=== PATIENT | female | born 1950 | race Caucasian/White ===

== ENCOUNTER 2018-11-07 22:42 | Emergency (ER) | payer OTHER ==
[2018-11-07 22:48] VITALS: BP 147/55; PULSE 81; TEMP 98.3; BMI 28.3
--- NOTE | 2018-11-07 22:57 | PDOC ---
*Physical Exam - Vital Signs Last Vital Signs Temp Pulse Resp BP Pulse Ox 98.3 F 81 18 147/55 L 100 11/07/18 22:45 11/07/18 22:45 11/07/18 22:45 11/07/18 22:45 11/07/18 22:45 *DC/Admit/Observation/Transfer - Referrals Referrals: Jerry Fuentes MD [Primary Care Provider] - - Patient Instructions - Post Discharge Activity
--- NOTE | 2018-11-07 23:35 | PDOC ---
History of Present Illness - General Chief Complaint: Sore Throat Stated Complaint: SORE THROAT Time Seen by Provider: 11/07/18 22:55 History Source: Patient Past History - Past Medical History Allergies/Adverse Reactions: Allergies Allergy/AdvReac Type Severity Reaction Status Date / Time No Known Allergies Allergy Verified 07/03/12 20:27 Home Medications: Ambulatory Orders Amitriptyline HCl [Elavil -] 25 mg PO HS 06/30/12 Acetaminophen W/ Codeine #3 [Tylenol # 3 -] 1 tab PO Q4H PRN #15 tablet Phenazopyridine HCl 100 mg PO TID 07/01/12 Hydrocortisone/Lidocaine/Aloe [Lidocaine 3%-Hc 2.5% Gel] 1 each RC BID #0 kit Oxycodone HCl/Acetaminophen [Percocet 5-325 mg Tablet] 1 - 2 tab PO Q6H #30 tablet 07/03/12 Anemia: No Asthma: No Cancer: No Cardiac Disorders: No CVA: No COPD: No CHF: No Dementia: No Diabetes: No GI Disorders: No Disorders: Yes (dropped bladder) HTN: Yes Hypercholesterolemia: No Liver Disease: No Seizures: No Thyroid Disease: No - Surgical History Abdominal Surgery: No Appendectomy: No Cardiac Surgery: No Cholecystectomy: Yes (2008) Lung Surgery: No Neurologic Surgery: No Orthopedic Surgery: Yes (l knee arthroscopy) - Suicide/Smoking/Psychosocial Hx Smoking Status: No Smoking History: Never smoked Have you smoked in the past 12 months: No Number of Cigarettes Smoked Daily: 0 Information on smoking cessation initiated: No Hx Alcohol Use: No Drug/Substance Use Hx: No Substance Use Type: None Hx Substance Use Treatment: No *Physical Exam - Vital Signs Last Vital Signs Temp Pulse Resp BP Pulse Ox 98.3 F 81 18 147/55 L 100 11/07/18 22:45 11/07/18 22:45 11/07/18 22:45 11/07/18 22:45 11/07/18 22:45 Moderate Sedation - Procedure Monitoring Vital Signs: Procedure Monitoring Vital Signs Temperature 98.3 F 11/07/18 22:45 Pulse Rate 81 11/07/18 22:45 Respiratory Rate 18 11/07/18 22:45 Blood Pressure 147/55 L 11/07/18 22:45 O2 Sat by Pulse Oximetry (%) 100 11/07/18 22:45 *DC/Admit/Observation/Transfer - Referrals Referrals: Jerry Fuentes MD [Primary Care Provider] - - Patient Instructions - Post Discharge Activity
--- NOTE | 2018-11-08 01:20 | PDOC ---
Attending Attestation - Resident Resident Name: Keli Velasquez - ED Attending Attestation I have performed the following: I have examined & evaluated the patient, The case was reviewed & discussed with the resident, I agree w/resident's findings & plan, Exceptions are as noted - HPI HPI: 11/08/18 03:23 Ms Han is a 68 yo F PMH of HTN who presents to the ER with a complaint of sore throat, cough productive of yellow phlegm which is also blood tinged Symptoms began today. No chest pain Pt does note throat pain No fevers or chills Denies SOB, abdominal pain, n/v/d, recent travel - Physicial Exam PE: 11/08/18 03:26 GENERAL: The patient is in no acute distress. ENT: Ears normal, nares patent, oropharynx clear without exudates. Moist mucous membranes. No tonsillar enlargement, no exudates NECK: Normal range of motion, supple, no nuchal rigidity (+) LAD LUNGS: Breath sounds equal, clear to auscultation bilaterally. No wheezes, and no crackles. HEART:Regular rate and rhythm, normal S1 and S2 without murmur, rub or gallop. ABDOMEN: Soft, nontender, normoactive bowel sounds. EXTREMITIES: Normal range of motion, no edema. NEUROLOGICAL: Cranial nerves II through XII grossly intact. Normal speech. No focal neurological deficits. SKIN: Warm, Dry, normal turgor, no rashes or lesions noted. - Medical Decision Making 11/08/18 03:32 Laboratory Tests 11/08/18 11/08/18 11/08/18 01:33 01:33 01:56 WBC 9.3 Hgb 13.5 Hct 39.1 Plt Count 306 BUN 8 Creatinine 0.6 Group A Strep Rapid Negative CXR - no acute infiltrate or consolidation Will discharge to home Will give Azithromycin Follow up with PMD
[2018-11-08] MEDS ORDERED: ACETAMINOPHEN 500 MG TABLET (FP) PO ONE (01:24)
[2018-11-08] MEDS ORDERED: DEXAMETHASONE 4 MG TABLET (FP) PO STA (01:24)
--- NOTE | 2018-11-08 01:40 | PDOC ---
History of Present Illness - General Chief Complaint: Hemoptysis Stated Complaint: SORE THROAT Time Seen by Provider: 11/07/18 22:55 History Source: Patient, Family (Son) Exam Limitations: Language Barrier - History of Present Illness Initial Comments: 11/08/18 01:36 Pt is a 68yo F with PMH of HTN presenting to ED with complaints of sore throat, cough productive of yellow phlegm and hemoptysis, headache. Symptoms started today. Pt states that she has been having congestion, saw her PMD and was given Sudafed and Claritin. The sudafed has helped with the congestion but throat still hurts. Sputum is mainly yellow with scant amounts of occasional red blood , no clots. She denies fever, chills, chest pain, SOB, abdominal pain, n/v/d, sick contacts, recent travel, changes in vision, earache, syncope, dizziness. PMD: Neghassi PMH: HTN PSH: none Meds: Amlodipine Allergies: nkda Social: denies Past History - Past Medical History Allergies/Adverse Reactions: Allergies Allergy/AdvReac Type Severity Reaction Status Date / Time No Known Allergies Allergy Verified 07/03/12 20:27 Home Medications: Ambulatory Orders Amitriptyline HCl [Elavil -] 25 mg PO HS 06/30/12 Acetaminophen W/ Codeine #3 [Tylenol # 3 -] 1 tab PO Q4H PRN #15 tablet Phenazopyridine HCl 100 mg PO TID 07/01/12 Hydrocortisone/Lidocaine/Aloe [Lidocaine 3%-Hc 2.5% Gel] 1 each RC BID #0 kit Oxycodone HCl/Acetaminophen [Percocet 5-325 mg Tablet] 1 - 2 tab PO Q6H #30 tablet 07/03/12 Azithromycin [Zithromax 250mg Tablets -] 250 mg PO DAILY #4 tablet 11/08/18 Anemia: No Asthma: No Cancer: No Cardiac Disorders: No CVA: No COPD: No CHF: No Dementia: No Diabetes: No GI Disorders: No Disorders: Yes (dropped bladder) HTN: Yes Hypercholesterolemia: No Liver Disease: No Seizures: No Thyroid Disease: No - Surgical History Abdominal Surgery: No Appendectomy: No Cardiac Surgery: No Cholecystectomy: Yes (2008) Lung Surgery: No Neurologic Surgery: No Orthopedic Surgery: Yes (l knee arthroscopy) - Suicide/Smoking/Psychosocial Hx Smoking Status: No Smoking History: Never smoked Have you smoked in the past 12 months: No Number of Cigarettes Smoked Daily: 0 Information on smoking cessation initiated: No Hx Alcohol Use: No Drug/Substance Use Hx: No Substance Use Type: None Hx Substance Use Treatment: No *Physical Exam - Vital Signs Last Vital Signs Temp Pulse Resp BP Pulse Ox 98.3 F 81 18 147/55 L 100 11/07/18 22:45 11/07/18 22:45 11/07/18 22:45 11/07/18 22:45 11/07/18 22:45 Moderate Sedation - Procedure Monitoring Vital Signs: Procedure Monitoring Vital Signs Temperature 98.3 F 11/07/18 22:45 Pulse Rate 81 11/07/18 22:45 Respiratory Rate 18 11/07/18 22:45 Blood Pressure 147/55 L 11/07/18 22:45 O2 Sat by Pulse Oximetry (%) 100 11/07/18 22:45 ED Treatment Course - LABORATORY CBC & Chemistry Diagram: 11/08/18 01:33 11/08/18 01:33 - RADIOLOGY Radiology Studies Ordered: Category Date Time Status CHEST PA & LAT [RAD] Stat Radiology 11/08/18 01:24 Ordered Medical Decision Making - Medical Decision Making 11/08/18 01:40 Pt is a 68yo F with PMH of HTN presenting to ED with complaints of sore throat, cough productive of yellow phlegm and hemoptysis, headache. Symptoms started today. Pt states that she has been having congestion, saw her PMD and was given Sudafed and Claritin. The sudafed has helped with the congestion but throat still hurts. Sputum is mainly yellow with scant amounts of occasional red blood , no clots. She denies fever, chills, chest pain, SOB, abdominal pain, n/v/d, sick contacts, recent travel, changes in vision, earache, syncope, dizziness. Vitals: wnl PE: benign *DC/Admit/Observation/Transfer Diagnosis at time of Disposition: Bronchitis - Discharge Dispostion Disposition: HOME Condition at time of disposition: Improved Decision to Admit order: No - Referrals Referrals: Jerry Fuentes MD [Primary Care Provider] - - Patient Instructions Printed Discharge Instructions: DI for Acute Bronchitis Additional Instructions: You were seen in the emergency room for sore throat and cough. The blood test and xray were normal. You most likely have bronchitis. A prescription was sent to your pharmacy for an antibiotic. You received a dose here so start it tomorrow (Saturday). Take it once a day for 4 days. Please make an appointment with your doctor next week. Keep yourself well hydrated. Come back to the emergency room if coughing gets worse, you develop fever, you have difficulty breathing or if any new concerning symptom develops. Thank you - Post Discharge Activity
[2018-11-08] MEDS ORDERED: DEXAMETHASONE SOD PHOSPHATE 10 MG/1 ML VIAL ONE (01:42)
[2018-11-08] MEDS ORDERED: ACETAMINOPHEN 325 MG TABLET (FP) ONE (01:42)
[2018-11-08 01:45] LABS: BASO % 0.7 % (0-2.0); EOS % 0.5 % (0-4.5); HEMATOCRIT 39.1 % (32.4-45.2); HEMOGLOBIN 13.5 GM/dL (10.7-15.3); LYMPH % 24.9 % (8-40); MCH 31.5 pg (25.7-33.7); MCHC 34.5 g/dl (32.0-36.0); MEAN CELL VOLUME 91.3 fl (80-96); MEAN PLT VOLUME 8.2 fl (7.5-11.1); MONO % 5.3 % (3.8-10.2); NEUT % 68.6 % (42.8-82.8); PLATELET COUNT 306 K/MM3 (134-434); RBC 4.28 M/mm3 (3.60-5.2); RDW 13.7 % (11.6-15.6); WHITE BLOOD COUNT 9.3 K/mm3 (4.0-10.0)
[2018-11-08 02:21] LABS: ALBUMIN 3.5 g/dl (3.4-5.0); ALK PHOS 152 U/L (45-117); ANION GAP 6 MMOL/L (8-16); BILIRUBIN,TOTAL 0.5 mg/dL (0.2-1); BLOOD UREA NITROGEN 8 mg/dL (7-18); CALCIUM 8.7 mg/dL (8.5-10.1); CHLORIDE 107 mmol/L (98-107); CO2 26 mmol/L (21-32); CREATININE 0.6 mg/dL (0.55-1.3); GLUCOSE,RANDOM 93 mg/dL (74-106); POTASSIUM 3.9 mmol/L (3.5-5.1); SGOT/AST 23 U/L (15-37); SGPT/ALT 33 U/L (13-61); SODIUM 139 mmol/L (136-145); TOT PROT 6.9 g/dl (6.4-8.2)
[2018-11-08] MEDS ORDERED: AZITHROMYCIN 250 MG TABLET PO ONE (02:33)
[2018-11-08] MEDS ORDERED: AZITHROMYCIN 250 MG TABLET ONE (03:27)
== END 2018-11-08 03:33 | disposition home or self-care (01) ==
LOC: JER 22:42
DX: J40 Bronchitis, not specified as acute or chronic (principal); I10 Essential (primary) hypertension
CPT/HCPCS: 36415; 71046-TC-FY; 80053; 85025; 87070; 87880; 99281-25

== ENCOUNTER 2019-01-06 13:07 | Emergency (ER) | payer OTHER ==
[2019-01-06 13:13] VITALS: BP 153/65; PULSE 82; TEMP 98.3; BMI 28.3
[2019-01-06] MEDS ORDERED: KETOROLAC TROMETHAMINE 30 MG/1 ML VIAL IM ONE (13:46)
--- NOTE | 2019-01-06 13:46 | PDOC ---
History of Present Illness - General History Source: Patient - History of Present Illness Occurred: reports: other Severity: reports: moderate Pain Location: reports: back, chest <OlyJosefina - Last Filed: 01/06/19 14:26> <Mayda Louis - Last Filed: 01/07/19 07:58> - General Chief Complaint: Back Pain Stated Complaint: PAIN Time Seen by Provider: 01/06/19 13:42 Past History - Past Medical History Anemia: No Asthma: No Cancer: No Cardiac Disorders: No CVA: No COPD: No CHF: No Dementia: No Diabetes: No GI Disorders: No Disorders: Yes (dropped bladder) HTN: Yes Hypercholesterolemia: No Liver Disease: No Seizures: No Thyroid Disease: No - Surgical History Abdominal Surgery: No Appendectomy: No Cardiac Surgery: No Cholecystectomy: Yes (2008) Lung Surgery: No Neurologic Surgery: No Orthopedic Surgery: Yes (l knee arthroscopy) - Suicide/Smoking/Psychosocial Hx Smoking Status: No Smoking History: Never smoked Have you smoked in the past 12 months: No Number of Cigarettes Smoked Daily: 0 Hx Alcohol Use: No Drug/Substance Use Hx: No Substance Use Type: None Hx Substance Use Treatment: No <HinkleJosefina - Last Filed: 01/06/19 14:26> <Mayda Louis - Last Filed: 01/07/19 07:58> - Past Medical History Allergies/Adverse Reactions: Allergies Allergy/AdvReac Type Severity Reaction Status Date / Time No Known Allergies Allergy Verified 01/06/19 13:09 Home Medications: Ambulatory Orders Amitriptyline HCl [Elavil -] 25 mg PO HS 06/30/12 Acetaminophen W/ Codeine #3 [Tylenol # 3 -] 1 tab PO Q4H PRN #15 tablet Phenazopyridine HCl 100 mg PO TID 07/01/12 Hydrocortisone/Lidocaine/Aloe [Lidocaine 3%-Hc 2.5% Gel] 1 each RC BID #0 kit Oxycodone HCl/Acetaminophen [Percocet 5-325 mg Tablet] 1 - 2 tab PO Q6H #30 tablet 07/03/12 Azithromycin [Zithromax 250mg Tablets -] 250 mg PO DAILY #4 tablet 11/08/18 Acetaminophen W/ Codeine #3 [Tylenol # 3 -] 1 tab PO Q6H #15 tablet MDD 4 doses 01/06/19 Valacyclovir HCl [Valtrex -] 1,000 mg PO TID #21 tablet 01/06/19 Review of Systems - Review of Systems Constitutional: No: Chills, Fever Cardiac (ROS): Yes: Chest Pain ABD/GI: No: Nausea, Vomiting Musculoskeletal: Yes: Back Pain Neurological: No: Numbness, Tingling <Josefina Aldridge - Last Filed: 01/06/19 14:26> *Physical Exam - Vital Signs Last Vital Signs Temp Pulse Resp BP Pulse Ox 98.3 F 82 20 153/65 98 01/06/19 13:10 01/06/19 13:10 01/06/19 13:10 01/06/19 13:10 01/06/19 13:10 - Physical Exam General Appearance: Yes: Appropriately Dressed, Moderate Distress HEENT: positive: Normal Voice Respiratory/Chest: positive: Lungs Clear, Normal Breath Sounds. negative: Respiratory Distress Cardiovascular: positive: Regular Rate, S1, S2 Integumentary: positive: Dry, Warm, Rash (vesicular rash to mid back and R inframammary area, c/w shingles, does not cross midline) Neurologic: positive: Fully Oriented, Alert, Normal Mood/Affect <Josefina Aldridge - Last Filed: 01/06/19 14:26> - Vital Signs Last Vital Signs Temp Pulse Resp BP Pulse Ox 98.3 F 82 20 153/65 98 01/06/19 13:10 01/06/19 13:10 01/06/19 13:10 01/06/19 13:10 01/06/19 13:10 <Mayda oLuis - Last Filed: 01/07/19 07:58> ED Treatment Course - Medications Given in the ED: ED Medications Discontinued Medications Generic Name Dose Route Start Last Admin Trade Name Jessy PRN Reason Stop Dose Admin Acetaminophen 650 mg 01/06/19 13:51 01/06/19 14:07 Tylenol - PO 01/06/19 13:52 650 mg ONCE ONE Administration Ketorolac Tromethamine 30 mg 01/06/19 13:46 01/06/19 14:08 Toradol Injection - IM 01/06/19 13:47 Not Given ONCE ONE Tramadol HCl 50 mg 01/06/19 13:50 01/06/19 14:07 Ultram - PO 01/06/19 13:51 50 mg ONCE ONE Administration <Mayda Louis - Last Filed: 01/07/19 07:58> Medical Decision Making - Medical Decision Making 01/06/19 13:43 68 yo F, denies any past medical history, here with severe pain to mid upper back radiating to right chest 2 days. No chest, no shortness of breath, diaphoresis, nausea, vomiting, fever or chills. No trauma. See exam Shingles Vesicular rash to T6 dermatome, no complications -pain control in ED -dc w/ valtrex, pain control -contact precautions given -pmd f/u 01/06/19 14:27 <Josefina Aldridge - Last Filed: 01/06/19 14:26> - Medical Decision Making The patient was seen and evaluated in conjunction with midlevel provider under my direct supervision, ancillary studies were reviewed. I agree with the plan as outlined SHELBI Aldridge. HPI, workup/dispo as outlined. VS reviewed, wnl. 01/07/19 07:58 <Mayda Louis - Last Filed: 01/07/19 07:58> *DC/Admit/Observation/Transfer <Josefina Aldridge - Last Filed: 01/06/19 14:26> <Mayda Louis - Last Filed: 01/07/19 07:58> Diagnosis at time of Disposition: Shingles Qualifiers: Herpes zoster complications: without complications Qualified Code(s): B02.9 - Zoster without complications - Discharge Dispostion Disposition: HOME Condition at time of disposition: Good - Prescriptions Prescriptions: Acetaminophen W/ Codeine #3 [Tylenol # 3 -] 1 tab PO Q6H #15 tablet MDD 4 doses Valacyclovir HCl [Valtrex -] 1,000 mg PO TID #21 tablet - Patient Instructions Printed Discharge Instructions: Shingles Additional Instructions: Tienes culebrilla que es arnel reactivacin de la varicela desde la infancia. [place] los medicamentos rivera se le indique y vicente un seguimiento con nova PMD. [place] es contagioso para las personas que nunca mccrary tenido varicela y para las mujeres embarazadas. Retorno por empeoramiento de los sntomas. Print Language: [place]
[2019-01-06] MEDS ORDERED: traMADol HCL 50 MG TABLET PO ONE (13:50)
[2019-01-06] MEDS ORDERED: ACETAMINOPHEN 325 MG TABLET (FP) PO ONE (13:51)
[2019-01-06] MEDS ORDERED: traMADol HCL 50 MG TABLET ONE (14:04)
[2019-01-06] MEDS ORDERED: ACETAMINOPHEN 325 MG TABLET (FP) ONE (14:04)
== END 2019-01-06 14:54 | disposition home or self-care (01) ==
LOC: JER 13:07
PROC: 3E0233Z Introduction of Anti-inflammatory into Muscle, Percutaneous Approach (ICD-10-PCS; principal; 2019-01-06)
DX: B02.9 Zoster without complications (principal)
CPT/HCPCS: 96372; 99282-25

== ENCOUNTER 2019-08-28 14:12 | Emergency (ER) | payer OTHER ==
[2019-08-28 14:23] VITALS: BP 138/67; PULSE 75; TEMP 98; BMI 28.4
[2019-08-28] MEDS ORDERED: DEXAMETHASONE LIQUID 0.5 MG/5 ML PO ONE (15:30)
[2019-08-28] MEDS ORDERED: ALBUTEROL SO4 2.5/IPRATROPIUM 0.5 INH SOL 3 ML VIAL.NEB. NEB ONE ×2 (15:30→16:43)
[2019-08-28] MEDS ORDERED: ACETAMINOPHEN 325 MG TABLET (FP) PO ONE (15:30)
[2019-08-28] MEDS ORDERED: guaiFENesin/D-METHORPHAN HB 10 ML UNIT-DOSE CUPS PO ONE (15:30)
--- NOTE | 2019-08-28 15:42 | PDOC ---
History of Present Illness - General Chief Complaint: Respiratory Stated Complaint: COUGH Time Seen by Provider: 08/28/19 14:43 History Source: Patient Exam Limitations: No Limitations Past History - Travel Close contact w/someone who was outside of country & ill: No - Past Medical History Allergies/Adverse Reactions: Allergies Allergy/AdvReac Type Severity Reaction Status Date / Time No Known Allergies Allergy Verified 08/28/19 14:18 Home Medications: Ambulatory Orders Phenazopyridine HCl 100 mg PO TID 07/01/12 Amlodipine Besylate 10 mg PO DAILY 08/28/19 Amoxicillin 875 mg PO BID 08/28/19 Azithromycin [Zithromax 250mg Tablets -] 250 mg PO UTDICT #6 tab 08/28/19 Benzonatate 100 mg PO TID PRN 08/28/19 Ciclopirox 1 appful TD ASDIR 08/28/19 Prednisone 40 mg PO DAILY #12 tablet 08/28/19 Anemia: No Asthma: No Cancer: No Cardiac Disorders: No CVA: No COPD: No CHF: No Dementia: No Diabetes: No GI Disorders: No Disorders: Yes (dropped bladder) HTN: Yes Hypercholesterolemia: No Liver Disease: No Seizures: No Thyroid Disease: No - Surgical History Abdominal Surgery: No Appendectomy: No Cardiac Surgery: No Cholecystectomy: Yes (2008) Lung Surgery: No Neurologic Surgery: No Orthopedic Surgery: Yes (l knee arthroscopy) - Psycho Social/Smoking Cessation Hx Smoking Status: No Smoking History: Never smoked Have you smoked in the past 12 months: No Number of Cigarettes Smoked Daily: 0 Hx Alcohol Use: No Drug/Substance Use Hx: No Substance Use Type: None Hx Substance Use Treatment: No Review of Systems - Review of Systems Able to Perform ROS?: Yes Comments:: 08/28/19 15:42 CONSTITUTIONAL: Absent: fever, chills, diaphoresis, generalized weakness, malaise, loss of appetite HEENT: Absent: rhinorrhea, nasal congestion, throat pain, throat swelling, difficulty swallowing, mouth swelling, ear pain, eye pain, visual Changes CARDIOVASCULAR: Absent: chest pain, loss of consciousness, palpitations, irregular heart rate, peripheral edema RESPIRATORY: Present: Cough, shortness of breath, chest tightness. Absent: dyspnea with exertion, orthopnea, wheezing, stridor, hemoptysis GASTROINTESTINAL: Absent: abdominal pain, abdominal distension, nausea, vomiting, diarrhea, constipation, melena, hematochezia GENITOURINARY: Absent: dysuria, frequency, urgency, hesitancy, hematuria, flank pain, genital pain MUSCULOSKELETAL: Absent: myalgia, arthralgia, joint swelling SKIN: Absent: rash, itching, pallor HEMATOLOGIC/IMMUNOLOGIC: Absent: easy bleeding, easy bruising, lymphadenopathy, frequent infections ENDOCRINE: Absent: unexplained weight gain, unexplained weight loss, heat intolerance, cold intolerance NEUROLOGIC: Absent: headache, focal weakness or paresthesias, dizziness, unsteady gait, seizure, mental status changes, bladder or bowel incontinence PSYCHIATRIC: Absent: anxiety, depression, suicidal or homicidal ideation, hallucinations. Is the patient limited Frisian proficient: No *Physical Exam - Vital Signs Last Vital Signs Temp Pulse Resp BP Pulse Ox 98 F 75 20 138/67 96 08/28/19 14:22 08/28/19 14:22 08/28/19 14:22 08/28/19 14:22 08/28/19 14:22 - Physical Exam 08/28/19 15:43 GENERAL: Well developed, well nourished. Awake and alert. No acute distress. HEENT: Normocephalic, atraumatic. PERRLA, EOMI. No conjunctival pallor. Sclera are non- icteric. Moist mucous membranes. (+) Nasal congestion, postnasal drip noted oropharynx is clear. NECK: Supple. Full ROM. No thyromegaly. No lymphadenopathy. CARDIOVASCULAR: Regular rate and rhythm. No murmurs, rubs, or gallops. Distal pulses are 2+ and symmetric. PULMONARY: No evidence of respiratory distress. Lungs clear to auscultation bilaterally. No wheezing, rales or rhonchi. ABDOMINAL: Soft. Non-tender. Non-distended. No rebound or guarding. No organomegaly. Normoactive bowel sounds. MUSCULOSKELETAL Normal range of motion at all joints. No bony deformities or tenderness. No CVA tenderness. EXTREMITIES: No cyanosis. No clubbing. No edema. No calf tenderness. SKIN: Warm and dry. Normal capillary refill. No rashes. No jaundice. NEUROLOGICAL: Alert, awake, appropriate. Cranial nerves 2-12 intact. No deficits to light touch and temperature in face, upper extremities and lower extremities. No motor deficits in the in face, upper extremities and lower extremities. Normoreflexic in the upper and lower extremities. Normal speech. Toes are down- going bilaterally. Gait is normal without ataxia. PSYCHIATRIC: Cooperative. Good eye contact. Appropriate mood and affect. Medical Decision Making - Medical Decision Making 08/28/19 15:45 Patient is a 69-year-old female past medical history of hypertension, who presents to the ER today for 1 month of cough. She states that she feels like she has a mass in the back of her throat that drips down the back of her throat. She notes that she has been seen her primary care provider who is given her amoxicillin and benzonate for the cough. She states the medications have not been helping. She denies taking any steroids for this issue. She notes that the cough is worse when she takes a deep breath. She also admits to some associated chest tightness. Denies fevers, chills, sore throat, earache, chest pain, nausea, vomiting or diarrhea. A/P: Cough On exam lungs are clear to auscultation bilateral with no wheezes rales or rhonchi. There is noted upper airway congestion. Given chest tightness, will order EKG and chest x-ray Audra and Alisia ordered Likely a viral bronchitis at this point Signout given to KYRA Sesay. Patient pending x-ray and EKG for dispo Discharge - Discharge Information Problems reviewed: Yes Clinical Impression/Diagnosis: Cough Condition: Stable Disposition: HOME - Additional Discharge Information Prescriptions: Azithromycin [Zithromax 250mg Tablets -] 250 mg PO UTDICT #6 tab Prednisone 40 mg PO DAILY #12 tablet - Follow up/Referral Referrals: Jerry Fuentes MD [Primary Care Provider] - - Patient Discharge Instructions Patient Printed Discharge Instructions: DI for Cough -- Adult Additional Instructions: Please take medications as prescribed. Follow up with your primary care doctor on Saturday as scheduled. If you develop fever, chills, vomiting, diarrhea, or any new or worsening symptoms, please return to the ER. Print Language: [place] - Post Discharge Activity
--- NOTE | 2019-08-28 16:31 | PDOC ---
*Physical Exam - Vital Signs Last Vital Signs Temp Pulse Resp BP Pulse Ox 98 F 75 20 138/67 96 08/28/19 14:22 08/28/19 14:22 08/28/19 14:22 08/28/19 14:22 08/28/19 14:22 - Physical Exam 08/28/19 16:31 Sign-out received from outgoing ER provider Isac. Pt interviewed and examined. Ancillary studies reviewed. 08/28/19 18:49 CXR wet read negative. Patient reports feeling much better after administration of meds. Patient states she has an appt with her PCP Dr. Garcia on Saturday. Discharge - Discharge Information Problems reviewed: Yes Clinical Impression/Diagnosis: Cough Condition: Stable Disposition: HOME - Admission No - Additional Discharge Information Prescriptions: Azithromycin [Zithromax 250mg Tablets -] 250 mg PO UTDICT #6 tab Prednisone 40 mg PO DAILY #12 tablet - Follow up/Referral Referrals: Jerry Fuentes MD [Primary Care Provider] - - Patient Discharge Instructions Patient Printed Discharge Instructions: DI for Cough -- Adult Additional Instructions: Please take medications as prescribed. Follow up with your primary care doctor on Saturday as scheduled. If you develop fever, chills, vomiting, diarrhea, or any new or worsening symptoms, please return to the ER. Print Language: TURKM[place] - Post Discharge Activity
[2019-08-28] MEDS ORDERED: guaiFENesin 200 MG/10 ML 10 ML UNIT-DOSE CUPS ONE (16:43)
[2019-08-28] MEDS ORDERED: ACETAMINOPHEN 325 MG TABLET (FP) ONE (16:43)
[2019-08-28] MEDS ORDERED: DEXAMETHASONE SOD PHOSPHATE 10 MG/1 ML VIAL ONE (16:44)
--- NOTE | 2019-08-29 14:14 | EKG ---
Test Reason : Blood Pressure : / mmHG Vent. Rate : 071 BPM Atrial Rate : 071 BPM P-R Int : 146 ms QRS Dur : 092 ms QT Int : 416 ms P-R-T Axes : 041 -22 016 degrees QTc Int : 452 ms NORMAL SINUS RHYTHM POSSIBLE LEFT ATRIAL ENLARGEMENT INCOMPLETE RIGHT BUNDLE BRANCH BLOCK BORDERLINE ECG WHEN COMPARED WITH ECG OF 25-JUL-2006 16:59, INCOMPLETE RIGHT BUNDLE BRANCH BLOCK IS NOW PRESENT Confirmed by VANESSA LORENZO MD ([id number]) on 08/29/2019 2:14:02 PM Referred By: Confirmed By:VANESSA LORENZO MD
== END 2019-08-28 19:13 | disposition home or self-care (01) ==
LOC: JER 14:12
PROC: 3E0F7GC Introduction of Other Therapeutic Substance into Respiratory Tract, Via Natural or Artificial Opening (ICD-10-PCS; principal; 2019-08-28)
DX: J20.8 Acute bronchitis due to other specified organisms (principal)
CPT/HCPCS: 71046-TC-FY; 93005; 93010; 99281-25

== ENCOUNTER 2020-10-21 13:14 | Emergency (ER) | payer OTHER ==
[2020-10-21 13:40] VITALS: BP 144/69; PULSE 96; TEMP 98.4; BMI 31.2
[2020-10-21] MEDS ORDERED: KETOROLAC TROMETHAMINE 30 MG/1 ML VIAL IVPUSH ONE (15:08)
[2020-10-21] MEDS ORDERED: KETOROLAC TROMETHAMINE 30 MG/1 ML VIAL ONE (16:31)
[2020-10-21 17:27] LABS: BASO % 0.3 % (0-2.0); EOS % 0.7 % (0-4.5); HEMATOCRIT 40.4 % (32.4-45.2); HEMOGLOBIN 13.4 GM/dL (10.7-15.3); LYMPH % 24.7 % (8-40); MCH 30.2 pg (25.7-33.7); MCHC 33.1 g/dl (32.0-36.0); MEAN CELL VOLUME 91.1 fl (80-96); MEAN PLT VOLUME 8.7 fl (7.5-11.1); MONO % 4.5 % (3.8-10.2); NEUT % 69.8 % (42.8-82.8); PLATELET COUNT 328 K/MM3 (134-434); RBC 4.44 M/mm3 (3.60-5.2); RDW 13.3 % (11.6-15.6); WHITE BLOOD COUNT 9.5 K/mm3 (4.0-10.0)
[2020-10-21 17:48] LABS: CHLORIDE 103 mmol/L (98-107); POTASSIUM 3.7 mmol/L (3.5-5.1); SODIUM 135 mmol/L (136-145)
[2020-10-21 17:50] LABS: ANION GAP 6 MMOL/L (8-16); CALCIUM 9.2 mg/dL (8.5-10.1); CO2 26 mmol/L (21-32)
[2020-10-21 17:51] LABS: ALBUMIN 4.1 g/dl (3.4-5.0); BLOOD UREA NITROGEN 8.7 mg/dL (7-18); GLUCOSE,RANDOM 96 mg/dL (74-106); MAGNESIUM 2.5 mg/dL (1.8-2.4)
[2020-10-21 17:54] LABS: CREATININE 0.6 mg/dL (0.55-1.3); SGOT/AST 20 U/L (15-37); SGPT/ALT 24 U/L (13-61)
[2020-10-21 17:55] LABS: BILIRUBIN,TOTAL 0.5 mg/dL (0.2-1); TOT PROT 7.5 g/dl (6.4-8.2)
[2020-10-21 17:56] LABS: ALK PHOS 168 U/L (45-117)
== END 2020-10-21 22:38 | disposition home or self-care (01) ==
LOC: JER 13:14
PROC: 3E033GC Introduction of Other Therapeutic Substance into Peripheral Vein, Percutaneous Approach (ICD-10-PCS; principal; 2020-10-21)
DX: R07.9 Chest pain, unspecified (principal)
CPT/HCPCS: 36415; 71046-TC-FY; 80053; 82550; 82553; 83735; 83880; 84439; 84443; 84484; 85025; 93005; 93010; 99285-25

== ENCOUNTER 2021-05-26 12:12 | Emergency (ER) | payer OTHER ==
[2021-05-26 12:17] VITALS: BP 156/74; PULSE 74; TEMP 98; BMI 30.4
[2021-05-26 13:14] LABS: EPI CELLS 9 /uL (0-25.1); HYALINE CASTS 1 /uL (0-3.1); URINE APPEARANCE CLEAR; URINE BACTERIA 107 /uL (0-1359); URINE BILIRUBIN NEGATIVE (NEGATIVE); URINE COLOR YELLOW; URINE GLUCOSE (UA) NEGATIVE (NEGATIVE); URINE KETONE NEGATIVE (NEGATIVE); URINE LEUK ESTERASE TRACE (NEGATIVE); URINE NITRITE NEGATIVE (NEGATIVE); URINE PROTEIN NEGATIVE (NEGATIVE); URINE RBC 2 /uL (0-23.9); URINE UROBILINOGEN 0.2 mg/dL (0.2-1.0); URINE WBC 25 /uL (0-25.8)
== END 2021-05-26 13:35 | disposition home or self-care (01) ==
LOC: JER 12:12 → JERFT 12:12
DX: R30.0 Dysuria (principal)
CPT/HCPCS: 81003; 87086; 99283-25

== ENCOUNTER 2021-06-08 14:10 | Emergency (ER) | payer OTHER ==
[2021-06-08 14:15] VITALS: BP 141/63; PULSE 80; TEMP 98.5; BMI 28.7
[2021-06-08 15:51] LABS: EPI CELLS 12 /uL (0-25.1); HYALINE CASTS 0 /uL (0-3.1); URINE APPEARANCE CLEAR; URINE BACTERIA 11 /uL (0-1359); URINE BILIRUBIN NEGATIVE (NEGATIVE); URINE COLOR YELLOW; URINE GLUCOSE (UA) NEGATIVE (NEGATIVE); URINE KETONE NEGATIVE (NEGATIVE); URINE LEUK ESTERASE 1+ (NEGATIVE); URINE NITRITE NEGATIVE (NEGATIVE); URINE PROTEIN NEGATIVE (NEGATIVE); URINE RBC 2 /uL (0-23.9); URINE UROBILINOGEN 0.2 mg/dL (0.2-1.0); URINE WBC 64 /uL (0-25.8)
[2021-06-08] MEDS ORDERED: PHENAZOPYRIDINE HCL 100 MG TABLET (FP) PO ONE (16:35)
[2021-06-08] MEDS ORDERED: PHENAZOPYRIDINE HCL 100 MG TABLET (FP) ONE (16:48)
== END 2021-06-08 16:51 | disposition home or self-care (01) ==
LOC: JER 14:10
DX: N39.3 Stress incontinence (female) (male) (principal); R35.0 Frequency of micturition
CPT/HCPCS: 81003; 87086; 87186; 99284-25

== ENCOUNTER 2022-09-16 18:09 | Emergency (ER) | payer OTHER ==
[2022-09-16 18:14] VITALS: BMI 31.5
[2022-09-16] MEDS ORDERED: LACTATED RINGERS SOLUTION 1000 ML INFUS.BAG IV ONE (21:11)
[2022-09-16 22:37] LABS: HEMATOCRIT 38.4 % (32.4-45.2); HEMOGLOBIN 12.7 GM/dL (10.7-15.3); MCH 29.8 pg (25.7-33.7); MCHC 33.1 g/dl (32.0-36.0); MEAN PLT VOLUME 7.6 fl (7.5-11.1); PLATELET COUNT 388 10^3/uL (134-434); RBC 4.27 M/mm3 (3.60-5.2); RDW 13.2 % (11.6-15.6); WHITE BLOOD COUNT 16.8 K/mm3 (4.0-10.0)
[2022-09-16 22:43] LABS: INR 1.18 (0.83-1.09); PROTHROMBIN TIME (PATIENT) 13.6 SEC (9.7-13.0)
[2022-09-16 23:22] LABS: ALBUMIN 3.6 g/dl (3.4-5.0); BLOOD UREA NITROGEN 11.2 mg/dL (7-18); CALCIUM 8.7 mg/dL (8.5-10.1)
[2022-09-16 23:25] LABS: CREATININE 0.5 mg/dL (0.55-1.3)
[2022-09-16 23:27] LABS: TOT PROT 6.8 g/dl (6.4-8.2)
[2022-09-16 23:30] LABS: BILIRUBIN,TOTAL 0.8 mg/dL (0.2-1)
[2022-09-17 00:20] LABS: ANISOCYTOSIS 2+; MACROCYTOSIS 0; OVALOCYTE 2+; TEAR DROP CELLS 1+; TOXIC GRANULATION 2+
[2022-09-17 01:27] VITALS: BP 136/57; PULSE 78; RESP 16; TEMP 99.6
[2022-09-17] MEDS ORDERED: AMPICILLIN NA/SULBACTAM NA 1.5 GM in SODIUM CHLORIDE 100 ML IVPB ONE (02:14)
== END 2022-09-17 06:01 | disposition home or self-care (01) ==
LOC: JER 18:09
DX: K52.9 Noninfective gastroenteritis and colitis, unspecified (principal)
CPT/HCPCS: 0241U-QW; 36415; 71045-TC-FY; 74177-TC; 80053; 84484; 85025; 85610; 93005; 93010; 99285-25; Q9967

== ENCOUNTER 2022-10-06 15:42 | Emergency (ER) | payer OTHER ==
[2022-10-06 15:51] VITALS: BP 172/87; PULSE 88; RESP 18; TEMP 98.5; BMI 29.2
[2022-10-06 19:07] LABS: BASO % 0.3 % (0-2.0); EOS % 0.6 % (0-4.5); HEMOGLOBIN 13.4 GM/dL (10.7-15.3); LYMPH % 21.6 % (8-40); MCH 29.4 pg (25.7-33.7); MCHC 31.8 g/dl (32.0-36.0); MEAN CELL VOLUME 92.5 fl (80-96); MEAN PLT VOLUME 8.3 fl (7.5-11.1); MONO % 5.4 % (3.8-10.2); NEUT % 72.1 % (42.8-82.8); PLATELET COUNT 334 10^3/uL (134-434); RBC 4.55 M/mm3 (3.60-5.2); RDW 13.9 % (11.6-15.6); WHITE BLOOD COUNT 12.6 K/mm3 (4.0-10.0)
[2022-10-06 19:34] LABS: ALBUMIN 3.7 g/dl (3.4-5.0); CALCIUM 9.1 mg/dL (8.5-10.1)
[2022-10-06 19:35] LABS: BLOOD UREA NITROGEN 12.3 mg/dL (7-18)
[2022-10-06 19:37] LABS: CREATININE 0.8 mg/dL (0.55-1.3)
[2022-10-06 19:40] LABS: BILIRUBIN,TOTAL 0.6 mg/dL (0.2-1); TOT PROT 7.1 g/dl (6.4-8.2)
== END 2022-10-06 20:05 | disposition home or self-care (01) ==
LOC: JER 15:42
DX: R19.7 Diarrhea, unspecified (principal)
CPT/HCPCS: 36415; 80053; 82272; 85025; 87045; 87046; 87209; 87324; 87449; 99281-25

== ENCOUNTER 2022-11-23 12:47 | Observation (INO) | payer OTHER ==
[2022-11-23] MEDS ORDERED: LABETALOL HCL 5 MG/1 ML (100MG/20 ML VIAL) IVPUSH ONE (13:46)
[2022-11-23] MEDS ORDERED: LABETALOL HCL 20 MG/4 ML VIAL ONE (14:06)
[2022-11-23 14:32] LABS: PH,URINE 7.5 (5.0-8.0); URINE APPEARANCE CLEAR; URINE BILIRUBIN NEGATIVE (NEGATIVE); URINE COLOR YELLOW; URINE GLUCOSE (UA) NEGATIVE (NEGATIVE); URINE KETONE NEGATIVE (NEGATIVE); URINE LEUK ESTERASE NEGATIVE (NEGATIVE); URINE NITRITE NEGATIVE (NEGATIVE); URINE PROTEIN NEGATIVE (NEGATIVE); URINE UROBILINOGEN 0.2 mg/dL (0.2-1.0)
[2022-11-23 14:51] LABS: BASO % 0.2 % (0-2.0); EOS % 0.5 % (0-4.5); HEMATOCRIT 40.3 % (32.4-45.2); HEMOGLOBIN 13.6 GM/dL (10.7-15.3); LYMPH % 24.8 % (8-40); MCH 30.8 pg (25.7-33.7); MCHC 33.8 g/dl (32.0-36.0); MEAN PLT VOLUME 8.8 fl (7.5-11.1); MONO % 3.9 % (3.8-10.2); NEUT % 70.6 % (42.8-82.8); PLATELET COUNT 329 10^3/uL (134-434); RBC 4.43 M/mm3 (3.60-5.2); RDW 14.1 % (11.6-15.6); WHITE BLOOD COUNT 9.9 K/mm3 (4.0-10.0)
[2022-11-23 15:30] VITALS: RESP 18
[2022-11-23 15:37] LABS: ALBUMIN 3.6 g/dl (3.4-5.0); BILIRUBIN,TOTAL 0.6 mg/dL (0.2-1); BLOOD UREA NITROGEN 7.4 mg/dL (7-18); CALCIUM 8.8 mg/dL (8.5-10.1); CREATININE 0.6 mg/dL (0.55-1.3); N-TERMINAL BNP 121.1 pg/ml (5-125); TOT PROT 7.3 g/dl (6.4-8.2)
[2022-11-23 17:22] LABS: ALBUMIN 3.4 g/dl (3.4-5.0); BLOOD UREA NITROGEN 7.2 mg/dL (7-18); CALCIUM 8.8 mg/dL (8.5-10.1)
[2022-11-23 17:25] LABS: CREATININE 0.5 mg/dL (0.55-1.3)
[2022-11-23 17:27] LABS: BILIRUBIN,TOTAL 0.5 mg/dL (0.2-1); TOT PROT 6.4 g/dl (6.4-8.2)
[2022-11-24 00:52] VITALS: BMI 29.5
[2022-11-24 07:25] LABS: BASO % 0.2 % (0-2.0); EOS % 0.3 % (0-4.5); HEMATOCRIT 39.3 % (32.4-45.2); HEMOGLOBIN 13.4 GM/dL (10.7-15.3); LYMPH % 12.1 % (8-40); MCH 30.7 pg (25.7-33.7); MCHC 34.1 g/dl (32.0-36.0); MEAN CELL VOLUME 89.9 fl (80-96); MEAN PLT VOLUME 8.4 fl (7.5-11.1); MONO % 4.1 % (3.8-10.2); NEUT % 83.3 % (42.8-82.8); PLATELET COUNT 299 10^3/uL (134-434); RBC 4.38 M/mm3 (3.60-5.2)
[2022-11-24 07:37] LABS: CALCIUM 8.9 mg/dL (8.5-10.1)
[2022-11-24 07:38] LABS: ALBUMIN 3.6 g/dl (3.4-5.0); BLOOD UREA NITROGEN 15.8 mg/dL (7-18); MAGNESIUM 2.3 mg/dL (1.8-2.4)
[2022-11-24 07:41] LABS: CREATININE 0.5 mg/dL (0.55-1.3); PHOSPHOROUS 4.3 mg/dL (2.5-4.9)
[2022-11-24 07:42] LABS: BILIRUBIN,TOTAL 0.8 mg/dL (0.2-1)
[2022-11-24 07:43] LABS: TOT PROT 6.9 g/dl (6.4-8.2)
[2022-11-24 07:47] VITALS: TEMP 98.7
[2022-11-24] MEDS ORDERED: amLODIPine BESYLATE 5 MG TABLET (FP) PO SCH (10:00)
[2022-11-24] MEDS ORDERED: LOSARTAN POTASSIUM 25 MG TABLET PO SCH (10:00)
[2022-11-24] MEDS ORDERED: ENOXAPARIN NA (PORCINE) 40 MG/0.4 ML DISP.SYRIN SQ SCH (10:00)
[2022-11-24 10:12] VITALS: BP 155/74; PULSE 67
== END 2022-11-24 16:55 | disposition home or self-care (01) ==
LOC: JER 12:47 → JERBED 17:40 → J4W 20:11
PROVIDERS: ADMIT Internal Medicine; ATTEND Internal Medicine
PROC: 3E023GC Introduction of Other Therapeutic Substance into Muscle, Percutaneous Approach (ICD-10-PCS; principal; 2022-11-23)
PROC: 3E033GC Introduction of Other Therapeutic Substance into Peripheral Vein, Percutaneous Approach (ICD-10-PCS; 2022-11-23)
DX: I10 Essential (primary) hypertension (principal); E78.00 Pure hypercholesterolemia, unspecified; R51.9 Headache, unspecified; N39.9 Disorder of urinary system, unspecified
CPT/HCPCS: 36415; 70450-TC; 71045-TC-FY; 80053; 80061; 81003; 83735; 83880; 84100; 84443; 84484; 85025; 93005; 93010; 96372; 96374; 99285-25; C9803-CS; G0378; U0003; U0005

== ENCOUNTER 2022-12-11 11:43 | Observation (INO) | payer OTHER ==
[2022-12-11 11:57] VITALS: BMI 29.9
[2022-12-11] MEDS ORDERED: IBUPROFEN 400 MG TABLET (FP) PO ONE ×2 (12:25→13:25)
[2022-12-11] MEDS ORDERED: ONDANSETRON 4 MG TABLET PO ONE (12:25)
[2022-12-11] MEDS ORDERED: ACETAMINOPHEN 325 MG TABLET (FP) PO ONE (12:25)
[2022-12-11] MEDS ORDERED: ONDANSETRON *ODT* 4 MG TABLET ONE (13:25)
[2022-12-11] MEDS ORDERED: ACETAMINOPHEN 325 MG TABLET (FP) ONE (13:25)
[2022-12-11 15:05] LABS: BASO % 0.3 % (0-2.0); HEMATOCRIT 38.4 % (32.4-45.2); MCH 29.9 pg (25.7-33.7); MCHC 33.9 g/dl (32.0-36.0); MEAN CELL VOLUME 88.3 fl (80-96); MONO % 5.6 % (3.8-10.2); NEUT % 85.1 % (42.8-82.8); PLATELET COUNT 279 10^3/uL (134-434); RBC 4.35 M/mm3 (3.60-5.2); RDW 13.6 % (11.6-15.6); WHITE BLOOD COUNT 10.6 K/mm3 (4.0-10.0)
[2022-12-11 15:25] LABS: CALCIUM 8.7 mg/dL (8.5-10.1)
[2022-12-11 15:26] LABS: ALBUMIN 3.6 g/dl (3.4-5.0); BLOOD UREA NITROGEN 4.7 mg/dL (7-18)
[2022-12-11 15:29] LABS: CREATININE 0.5 mg/dL (0.55-1.3)
[2022-12-11 15:31] LABS: BILIRUBIN,TOTAL 0.7 mg/dL (0.2-1)
[2022-12-11] MEDS ORDERED: SODIUM CHLORIDE 0.9% 500 ML INFUS.BAG IV ONE (15:32)
[2022-12-11] MEDS ORDERED: ONDANSETRON 4 MG/2 ML VIAL IVPUSH PRN (18:23)
[2022-12-11] MEDS ORDERED: POTASSIUM CHLORIDE TABS 20 MEQ TABLET.ER (FP) PO ONE ×2 (18:25→18:51)
[2022-12-11] MEDS ORDERED: SODIUM CHLORIDE 1,000 ML IV SCH (18:30)
[2022-12-11 20:03] LABS: CALCIUM 8.2 mg/dL (8.5-10.1)
[2022-12-11 20:04] LABS: BLOOD UREA NITROGEN 4.8 mg/dL (7-18)
[2022-12-11 20:07] LABS: CREATININE 0.6 mg/dL (0.55-1.3)
[2022-12-11] MEDS: HEPARIN NA (PORCINE) 5,000 UNITS/ML 1ML VIAL SQ SCH (23:42)
[2022-12-11] MEDS: ACETAMINOPHEN 325 MG TABLET (FP) PO PRN (23:42)
[2022-12-11] MEDS: NITROFURANTOIN MACROCRYSTAL 50 MG CAPSULE (FP) PO SCH (23:44)
[2022-12-12] MEDS ORDERED: NITROFURANTOIN MACROCRYSTAL 50 MG CAPSULE (FP) PO SCH
[2022-12-12] MEDS: NITROFURANTOIN MACROCRYSTAL 50 MG CAPSULE (FP) PO SCH ×4 (05:58→23:58)
[2022-12-12 09:03] LABS: BASO % 0.3 % (0-2.0); HEMATOCRIT 37.6 % (32.4-45.2); HEMOGLOBIN 12.9 GM/dL (10.7-15.3); LYMPH % 7.2 % (8-40); MCH 30.1 pg (25.7-33.7); MCHC 34.2 g/dl (32.0-36.0); MEAN CELL VOLUME 88.3 fl (80-96); MEAN PLT VOLUME 8.1 fl (7.5-11.1); MONO % 7.9 % (3.8-10.2); NEUT % 84.6 % (42.8-82.8); PLATELET COUNT 281 10^3/uL (134-434); RBC 4.26 M/mm3 (3.60-5.2); RDW 13.5 % (11.6-15.6); WHITE BLOOD COUNT 11.3 K/mm3 (4.0-10.0)
[2022-12-12 09:19] LABS: CALCIUM 8.5 mg/dL (8.5-10.1)
[2022-12-12 09:20] LABS: BLOOD UREA NITROGEN 5.6 mg/dL (7-18)
[2022-12-12 09:23] LABS: CREATININE 0.6 mg/dL (0.55-1.3)
[2022-12-12] MEDS ORDERED: LOSARTAN POTASSIUM 50 MG TABLET PO SCH (10:00)
[2022-12-12] MEDS ORDERED: DEXTROSE 5%-WATER - 1,000 ML IV SCH ×2 (10:30→10:56)
[2022-12-12] MEDS: ACETAMINOPHEN 325 MG TABLET (FP) PO PRN ×2 (10:32→17:16)
[2022-12-12] MEDS: LOSARTAN POTASSIUM 25 MG TABLET PO SCH (10:34)
[2022-12-12] MEDS: HEPARIN NA (PORCINE) 5,000 UNITS/ML 1ML VIAL SQ SCH ×2 (10:34→21:06)
[2022-12-12 11:32] VITALS: RESP 18
[2022-12-12 16:54] LABS: BLOOD UREA NITROGEN 10.8 mg/dL (7-18)
[2022-12-12 16:57] LABS: CREATININE 0.7 mg/dL (0.55-1.3)
[2022-12-12] MEDS ORDERED: POTASSIUM CHLORIDE TABS 20 MEQ TABLET.ER (FP) PO ONE (17:32)
[2022-12-13 04:10] LABS: CALCIUM 8.4 mg/dL (8.5-10.1)
[2022-12-13 04:11] LABS: BLOOD UREA NITROGEN 7.3 mg/dL (7-18)
[2022-12-13 04:14] LABS: CREATININE 0.5 mg/dL (0.55-1.3); PHOSPHOROUS 2.3 mg/dL (2.5-4.9)
[2022-12-13 04:15] LABS: BILIRUBIN,TOTAL 0.5 mg/dL (0.2-1)
[2022-12-13 04:19] LABS: ALBUMIN 2.8 g/dl (3.4-5.0)
[2022-12-13] MEDS: NITROFURANTOIN MACROCRYSTAL 50 MG CAPSULE (FP) PO SCH ×2 (05:06→12:25)
[2022-12-13] MEDS: ACETAMINOPHEN 325 MG TABLET (FP) PO PRN (05:40)
[2022-12-13 08:50] LABS: BASO % 0.5 % (0-2.0); EOS % 0.1 % (0-4.5); HEMATOCRIT 36.8 % (32.4-45.2); HEMOGLOBIN 13.1 GM/dL (10.7-15.3); LYMPH % 12.1 % (8-40); MCH 31.2 pg (25.7-33.7); MCHC 35.5 g/dl (32.0-36.0); MEAN CELL VOLUME 87.7 fl (80-96); MEAN PLT VOLUME 8.8 fl (7.5-11.1); NEUT % 78.3 % (42.8-82.8); PLATELET COUNT 251 10^3/uL (134-434); RDW 13.2 % (11.6-15.6); WHITE BLOOD COUNT 10.3 K/mm3 (4.0-10.0)
[2022-12-13] MEDS: HEPARIN NA (PORCINE) 5,000 UNITS/ML 1ML VIAL SQ SCH (10:49)
[2022-12-13] MEDS: LOSARTAN POTASSIUM 25 MG TABLET PO SCH (10:49)
[2022-12-13 10:53] VITALS: BP 121/67; PULSE 73; TEMP 98.7
== END 2022-12-13 15:54 | disposition home or self-care (01) ==
LOC: JERFT 11:43 → INTOOBSV 15:50 → JERBED 15:50 → J7W 23:07
PROVIDERS: ADMIT Internal Medicine; ATTEND Internal Medicine
PROC: 3E033GC Introduction of Other Therapeutic Substance into Peripheral Vein, Percutaneous Approach (ICD-10-PCS; principal; 2022-12-11)
PROC: 3E023GC Introduction of Other Therapeutic Substance into Muscle, Percutaneous Approach (ICD-10-PCS; 2022-12-11)
PROC: 3E0337Z Introduction of Electrolytic and Water Balance Substance into Peripheral Vein, Percutaneous Approach (ICD-10-PCS; 2022-12-11)
DX: U07.1 COVID-19 (principal); E87.1 Hypo-osmolality and hyponatremia
CPT/HCPCS: 0241U-QW; 36415; 71046-TC-FY; 80048; 80053; 83735; 84100; 85025; 93005; 93010; 94010; 94761; 96361; 96365; 96372; 99285-25; G0378; J1644

== ENCOUNTER 2023-10-09 18:28 | Emergency (ER) | payer OTHER ==
[2023-10-09 18:42] VITALS: BP 141/69; PULSE 106; RESP 20; TEMP 98; BMI 27.7
[2023-10-09] MEDS ORDERED: SODIUM CHLORIDE 1,000 ML IV STA (19:56)
[2023-10-09] MEDS ORDERED: ACETAMINOPHEN 1000 MG/100 ML BAG IVPB ONE (19:56)
[2023-10-09] MEDS ORDERED: ACETAMINOPHEN INJECTION 100 ML IVPB ONE (20:07)
[2023-10-09 20:28] LABS: BASO % 0.7 % (0-2.0); EOS % 0.2 % (0-4.5); HEMATOCRIT 40.6 % (32.4-45.2); HEMOGLOBIN 13.5 GM/dL (10.7-15.3); LYMPH % 17.3 % (8-40); MCH 30.2 pg (25.7-33.7); MCHC 33.1 g/dl (32.0-36.0); MEAN PLT VOLUME 7.8 fl (7.5-11.1); MONO % 5.1 % (3.8-10.2); NEUT % 76.7 % (42.8-82.8); PLATELET COUNT 297 10^3/uL (134-434); RBC 4.46 M/mm3 (3.60-5.2); RDW 13.2 % (11.6-15.6); WHITE BLOOD COUNT 15.1 K/mm3 (4.0-10.0)
[2023-10-09 20:35] LABS: INR 1.11 (0.83-1.09); PROTHROMBIN TIME (PATIENT) 12.9 SEC (9.7-13.0)
[2023-10-09 20:38] LABS: ACTIVATED PTT 33.6 SECONDS (25.2-36.5)
[2023-10-09 20:46] LABS: POTASSIUM 3.8 mmol/L (3.5-5.1)
[2023-10-09 20:48] LABS: CALCIUM 9.2 mg/dL (8.5-10.1)
[2023-10-09 20:49] LABS: ALBUMIN 4.3 g/dl (3.4-5.0); BLOOD UREA NITROGEN 14.4 mg/dL (7-18)
[2023-10-09 20:52] LABS: CREATININE 0.7 mg/dL (0.55-1.3)
[2023-10-09 20:53] LABS: BILIRUBIN,TOTAL 0.9 mg/dL (0.2-1); TOT PROT 7.8 g/dl (6.4-8.2)
[2023-10-09 22:18] LABS: PH,URINE 6.5 (5.0-8.0); URINE APPEARANCE CLEAR; URINE BILIRUBIN NEGATIVE (NEGATIVE); URINE COLOR YELLOW; URINE GLUCOSE (UA) NEGATIVE (NEGATIVE); URINE KETONE NEGATIVE (NEGATIVE); URINE LEUK ESTERASE 2+ (NEGATIVE); URINE NITRITE NEGATIVE (NEGATIVE); URINE PROTEIN NEGATIVE (NEGATIVE); URINE UROBILINOGEN 0.2 mg/dL (0.2-1.0)
[2023-10-09 23:04] LABS: EPI CELLS 32.1 /uL (0-25.1); HYALINE CASTS 0 /uL (0-3.1); URINE BACTERIA 30.9 /uL (0-1359); URINE RBC 6.6 /uL (0-23.9); URINE WBC 101.2 /uL (0-25.8)
== END 2023-10-10 00:26 | disposition home or self-care (01) ==
LOC: JER 18:28
PROC: 3E033NZ Introduction of Analgesics, Hypnotics, Sedatives into Peripheral Vein, Percutaneous Approach (ICD-10-PCS; principal; 2023-10-09)
PROC: 3E0337Z Introduction of Electrolytic and Water Balance Substance into Peripheral Vein, Percutaneous Approach (ICD-10-PCS; 2023-10-09)
DX: R51.9 Headache, unspecified (principal); I10 Essential (primary) hypertension; N39.0 Urinary tract infection, site not specified; E87.1 Hypo-osmolality and hyponatremia; Z20.822 Contact with and (suspected) exposure to COVID-19
CPT/HCPCS: 0241U-QW; 36415; 71046-TC-FY; 80053; 81003; 84484; 85025; 85610; 85730; 87086; 93005; 93010; 99285-25; J0131

== ENCOUNTER 2023-10-11 13:56 | Emergency (ER) | payer OTHER ==
[2023-10-11 14:21] VITALS: RESP 18; TEMP 98.6; BMI 27.9
[2023-10-11] MEDS ORDERED: ACETAMINOPHEN 1000 MG/100 ML BAG IVPB ONE (15:33)
[2023-10-11] MEDS ORDERED: ACETAMINOPHEN INJECTION 100 ML IVPB ONE (15:47)
[2023-10-11] MEDS ORDERED: PROCHLORPERAZINE INJECTION 10 MG/2 ML VIAL IVPB ONE (16:20)
[2023-10-11] MEDS ORDERED: PROCHLORPERAZINE INJECTION 10 MG/2 ML VIAL ONE (16:40)
[2023-10-11 16:44] LABS: BASO % 0.4 % (0-2.0); EOS % 0.5 % (0-4.5); HEMATOCRIT 37.2 % (32.4-45.2); HEMOGLOBIN 12.9 GM/dL (10.7-15.3); LYMPH % 27.7 % (8-40); MCH 31.4 pg (25.7-33.7); MCHC 34.7 g/dl (32.0-36.0); MEAN CELL VOLUME 90.3 fl (80-96); MEAN PLT VOLUME 8.3 fl (7.5-11.1); NEUT % 66.4 % (42.8-82.8); PLATELET COUNT 313 10^3/uL (134-434); RBC 4.12 M/mm3 (3.60-5.2); RDW 13.4 % (11.6-15.6); WHITE BLOOD COUNT 9.7 K/mm3 (4.0-10.0)
[2023-10-11 16:48] LABS: POTASSIUM 4.3 mmol/L (3.5-5.1)
[2023-10-11 16:51] LABS: CALCIUM 9.3 mg/dL (8.5-10.1)
[2023-10-11 16:52] LABS: ALBUMIN 4.2 g/dl (3.4-5.0); BLOOD UREA NITROGEN 8.4 mg/dL (7-18)
[2023-10-11 16:54] LABS: CREATININE 0.6 mg/dL (0.55-1.3)
[2023-10-11 16:56] LABS: TOT PROT 7.4 g/dl (6.4-8.2)
[2023-10-11 16:57] LABS: BILIRUBIN,TOTAL 0.5 mg/dL (0.2-1)
[2023-10-11 19:10] VITALS: BP 130/69; PULSE 68
== END 2023-10-11 19:09 | disposition home or self-care (01) ==
LOC: JER 13:56
PROC: 3E033NZ Introduction of Analgesics, Hypnotics, Sedatives into Peripheral Vein, Percutaneous Approach (ICD-10-PCS; principal; 2023-10-11)
PROC: 3E033GC Introduction of Other Therapeutic Substance into Peripheral Vein, Percutaneous Approach (ICD-10-PCS; 2023-10-11)
DX: R51.9 Headache, unspecified (principal); R60.9 Edema, unspecified
CPT/HCPCS: 36415; 70450-TC; 80053; 85025; 99284-25; J0131

== ENCOUNTER 2024-03-11 16:23 | Emergency (ER) | payer OTHER ==
[2024-03-11 16:33] VITALS: BP 137/62; PULSE 86; RESP 18; TEMP 98.2; BMI 29.0
[2024-03-11] MEDS ORDERED: FAMOTIDINE 20 MG/50 ML IVPB 20 MG/50 ML MG IVPB ONE (18:27)
[2024-03-11] MEDS ORDERED: ONDANSETRON 4 MG/2 ML VIAL ONE ×2 (18:27→18:35)
[2024-03-11] MEDS ORDERED: FAMOTIDINE 10 MG/ML VIAL IVPB ONE (18:34)
[2024-03-11] MEDS: ONDANSETRON 4 MG/2 ML VIAL IVPUSH ONE (18:39)
[2024-03-11] MEDS: SODIUM CHLORIDE 0.9% 500 ML INFUS.BAG IV ONE (18:39)
[2024-03-11] MEDS: FAMOTIDINE 20 MG/50 ML IVPB 20 MG/50 ML MG IVPB ONE (18:39)
[2024-03-11 19:06] LABS: HEMATOCRIT 40.1 % (32.4-45.2); HEMOGLOBIN 13.4 GM/dL (10.7-15.3); MCH 30.3 pg (25.7-33.7); MCHC 33.3 g/dl (32.0-36.0); MEAN CELL VOLUME 90.8 fl (80-96); MEAN PLT VOLUME 8.2 fl (7.5-11.1); PLATELET COUNT 296 10^3/uL (134-434); RBC 4.41 M/mm3 (3.60-5.2); RDW 13.1 % (11.6-15.6); WHITE BLOOD COUNT 12.4 K/mm3 (4.0-10.0)
[2024-03-11 19:22] LABS: ALBUMIN 4.2 g/dl (3.4-5.0); BLOOD UREA NITROGEN 12.1 mg/dL (7-18)
[2024-03-11 19:26] LABS: CREATININE 0.7 mg/dL (0.55-1.3)
[2024-03-11 19:27] LABS: BILIRUBIN,TOTAL 0.8 mg/dL (0.2-1)
[2024-03-11 19:28] LABS: TOT PROT 7.7 g/dl (6.4-8.2)
[2024-03-11 20:21] LABS: ANISOCYTOSIS 1+; MACROCYTOSIS 0
[2024-03-11 20:56] LABS: URINE APPEARANCE CLEAR; URINE BILIRUBIN NEGATIVE (NEGATIVE); URINE COLOR YELLOW; URINE GLUCOSE (UA) NEGATIVE (NEGATIVE); URINE KETONE NEGATIVE (NEGATIVE); URINE LEUK ESTERASE NEGATIVE (NEGATIVE); URINE NITRITE NEGATIVE (NEGATIVE); URINE PROTEIN NEGATIVE (NEGATIVE); URINE UROBILINOGEN 0.2 mg/dL (0.2-1.0)
== END 2024-03-11 21:58 | disposition home or self-care (01) ==
LOC: JER 16:23
PROC: 3E033GC Introduction of Other Therapeutic Substance into Peripheral Vein, Percutaneous Approach (ICD-10-PCS; principal; 2024-03-11)
PROC: 3E033GC Introduction of Other Therapeutic Substance into Peripheral Vein, Percutaneous Approach (ICD-10-PCS; 2024-03-11)
DX: R11.2 Nausea with vomiting, unspecified (principal); K52.9 Noninfective gastroenteritis and colitis, unspecified; E87.1 Hypo-osmolality and hyponatremia; R10.13 Epigastric pain; R68.83 Chills (without fever); Z20.822 Contact with and (suspected) exposure to COVID-19
CPT/HCPCS: 0241U-QW; 36415; 80053; 81003; 85025; 87086; 99284-25